=== PATIENT | female | born 1930 | race Caucasian/White ===

== ENCOUNTER 2018-04-28 16:23 | Inpatient (IN) | payer MEDICARE, BC ==
[~2018-04-28] VITALS: Ht 162.6 cm; Wt 56.4 kg
[2018-04-28] MEDS ORDERED: ASPIRIN 81 MG TABLET CHEW PO ONE (17:00)
[2018-04-28 17:28] LABS: ALBUMIN 2.8 g/dL (3.4-5.0); ANION GAP 9 mmol/L (5-15); CALCIUM 8.1 mg/dL (8.5-10.1); CHLORIDE 109 mmol/L (98-107); CREATININE 0.66 mg/dL (0.55-1.02)
[2018-04-28] MEDS ORDERED: PLEASE ENTER HEIGHT AND WEIGHT MC SCH (17:30)
[2018-04-28 17:37] LABS: TROPONIN I 0.178 ng/mL (0.000-0.045)
[2018-04-28 17:42] LABS: <PLATELET ESTIMATE> ADEQUATE; <RBC MORPHOLOGY> NORMAL; BASOPHILS # (AUTO) 0.02 x10^3/uL (0-0.1); BASOPHILS % (AUTO) 0 % (0-1); EOSINOPHILS % (AUTO) 0 % (1-7); LARGE PLATELETS 1+; LYMPHOCYTES # (AUTO) 0.45 x10^3/uL (1-3.4); LYMPHOCYTES % (AUTO) 4 % (22-44); MD MORPH REVIEW ONLY; MEAN CORPUSCULAR HEMOGLOBIN 27.3 pg (27.0-34.8); MEAN CORPUSCULAR HGB CONC 32.6 g/dL (32.4-35.8); MEAN CORPUSCULAR VOLUME 83.8 fL (80-100); MEAN PLATELET VOLUME 12.3 fL (7.4-10.4); MONOCYTES # (AUTO) 0.22 x10^3/uL (0.2-0.8); MONOCYTES % (AUTO) 2 % (2-9); NEUTROPHILS # (AUTO) 12.18 x10^3/uL (1.8-6.8); NEUTROPHILS % (AUTO) 95 % (42-75); PLATELET COUNT 187 x10^3/uL (130-400); RED BLOOD COUNT 5.18 x10^6/uL (3.82-5.3); RED CELL DISTRIBUTION WIDTH 15.6 % (9.6-15.2)
[2018-04-28] MEDS ORDERED: ASPIRIN 81 MG TABLET CHEW ONE (17:45)
[2018-04-28] MEDS ORDERED: ROSU5TAB PO (17:52)
[2018-04-28] MEDS ORDERED: PREG25CA PO (17:53)
[2018-04-28] MEDS ORDERED: AMIO100T4 PO (17:53)
[2018-04-28] MEDS ORDERED: FENTANYL (17:54)
[2018-04-28] MEDS ORDERED: DULO20CA45 PO (17:55)
[2018-04-28] MEDS ORDERED: OMNIPAQUE 350 MG/ML, 100ML BOTTLE ONE (18:19)
[2018-04-28] MEDS ORDERED: FENT1PAT77 TD (18:52)
[2018-04-28] MEDS ORDERED: HEPARIN 25,000 UNITS/500ML PMX 500 ML IV PRN (19:00)
[2018-04-28] MEDS ORDERED: HEPARIN 5,000 UNITS/ML, 1ML IV ONE (19:00)
[2018-04-28] MEDS ORDERED: HEPARIN 5,000 UNITS/ML, 1ML IV PRN (19:00)
[2018-04-28] MEDS ORDERED: HEPARIN 25,000 UNITS/500ML PMX 500 ML ONE (19:09)
[2018-04-28] MEDS ORDERED: HEPARIN 5,000 UNITS/ML, 1ML ONE (19:09)
[2018-04-28] MEDS ORDERED: SODIUM CHLORIDE 0.9% 1,000 ML IV SCH (19:40)
[2018-04-28] MEDS ORDERED: ONDANSETRON ODT 4 MG PO PRN (20:00)
[2018-04-28] MEDS ORDERED: LABETALOL 5MG/ML, 20ML IVPush PRN (20:00)
[2018-04-28] MEDS ORDERED: ACETAMINOPHEN 325 MG TABLET PO PRN (20:00)
[2018-04-28] MEDS ORDERED: BISACODYL 10 MG SUPP PR PRN (20:00)
[2018-04-28] MEDS ORDERED: ONDANSETRON 2MG/ML, 2ML IVPush PRN (20:00)
[2018-04-28] MEDS ORDERED: POLYETHYLENE GLYCOL 17 GM PACKET PO PRN (20:00)
[2018-04-28] MEDS ORDERED: DOCUSATE 100 MG CAPSULE PO PRN (20:00)
[2018-04-28] MEDS ORDERED: PROMETHAZINE 25 MG/ML, 1ML IM PRN (20:00)
[2018-04-28] MEDS ORDERED: POTASSIUM CHLORIDE 20 MEQ TAB.ER.PRT PO ONE (20:00)
[2018-04-28 20:19] LABS: HEMOGLOBIN A1C 5.7 % (4.2-6.3)
[2018-04-28 20:20] LABS: FREE T4 (FREE THYROXINE) 1.68 ng/dL (0.76-1.46); THYROID STIMULATING HORMONE 0.935 mIU/L (0.358-3.740)
[2018-04-28] MEDS: ATORVASTATIN 20 MG TABLET PO SCH (21:56)
[2018-04-28 23:04] LABS: CULTURE INDICATED? YES; MICROSCOPIC INDICATED
[2018-04-28 23:25] LABS: TROPONIN I 0.133 ng/mL (0.000-0.045)
[2018-04-28 23:49] VITALS: BP 152/95
[2018-04-29 00:42] VITALS: BP 153/89
[2018-04-29 05:19] LABS: CHLORIDE 112 mmol/L (98-107)
[2018-04-29 05:30] LABS: ALANINE AMINOTRANSFERASE 19 U/L (12-78); ALBUMIN 2.3 g/dL (3.4-5.0); ALKALINE PHOSPHATASE 68 U/L (45-117); ANION GAP 9 mmol/L (5-15); BILIRUBIN,TOTAL 0.4 mg/dL (0.2-1.0); CALCIUM 7.6 mg/dL (8.5-10.1); CHOLESTEROL, TOTAL 102 mg/dL (140-239); CREATININE 0.61 mg/dL (0.55-1.02); HDL CHOL % 49 % (28-40); HDL CHOLESTEROL (DIRECT) 50 mg/dL (40-60); LDL CHOLESTEROL,CALCULATED 34 mg/dL (54-169); TOTAL PROTEIN 5.3 g/dL (6.4-8.2); TRIGLYCERIDES 91 mg/dL (50-200); VLDL CHOLESTEROL 18 mg/dL (0-25)
[2018-04-29 05:31] LABS: LDL/HDL RATIO 0.7 (0.5-3.0); TROPONIN I 0.087 ng/mL (0.000-0.045)
[2018-04-29 05:58] LABS: MEAN CORPUSCULAR HEMOGLOBIN 27.4 pg (27.0-34.8); MEAN CORPUSCULAR HGB CONC 32.4 g/dL (32.4-35.8); MEAN CORPUSCULAR VOLUME 84.4 fL (80-100); MEAN PLATELET VOLUME 12.7 fL (7.4-10.4); PLATELET COUNT 159 x10^3/uL (130-400); RED BLOOD COUNT 4.66 x10^6/uL (3.82-5.3); RED CELL DISTRIBUTION WIDTH 15.8 % (9.6-15.2)
[2018-04-29 06:26] LABS: BASOPHILS # (AUTO) 0.02 x10^3/uL (0-0.1); BASOPHILS % (AUTO) 0 % (0-1); EOSINOPHILS % (AUTO) 0 % (1-7); LYMPHOCYTES # (AUTO) 1.72 x10^3/uL (1-3.4); LYMPHOCYTES % (AUTO) 18 % (22-44); MD SCAN; MONOCYTES # (AUTO) 0.75 x10^3/uL (0.2-0.8); MONOCYTES % (AUTO) 8 % (2-9); NEUTROPHILS # (AUTO) 7.34 x10^3/uL (1.8-6.8); NEUTROPHILS % (AUTO) 75 % (42-75)
[2018-04-29 06:35] VITALS: BP 158/88
[2018-04-29] MEDS: AMIODARONE 200 MG TABLET PO SCH (08:23)
[2018-04-29] MEDS: PREGABALIN 25 MG CAPSULE PO SCH (08:23)
[2018-04-29] MEDS ORDERED: AMIODARONE HCL PO SCH (09:00)
[2018-04-29 12:10] VITALS: BP 153/78
[2018-04-29] MEDS: ENOXAPARIN 60 MG/0.6 ML SQ SCH (13:54)
[2018-04-29 13:55] LABS: INTERNATIONAL NORMALIZED RATIO 1.04 (0.93-1.1); PROTHROMBIN TIME 10.8 Seconds (9.6-11.5)
[2018-04-29] MEDS ORDERED: SODIUM CHLORIDE 0.9% 1,000 ML IV SCH (14:30)
[2018-04-29] MEDS ORDERED: WARFARIN 5 MG TABLET PO-COUM ONE (18:00)
[2018-04-29 19:13] LABS: CLOSTRIDIUM DIFFICILE ANTIGEN NEGATIVE; CLOSTRIDIUM DIFFICILE TOXIN NEGATIVE (Negative)
[2018-04-29 20:00] VITALS: BP 144/84
[2018-04-29] MEDS: ATORVASTATIN 20 MG TABLET PO SCH (20:14)
[2018-04-30 00:52] VITALS: BP 164/90
[2018-04-30] MEDS: ENOXAPARIN 60 MG/0.6 ML SQ SCH ×2 (02:25→14:37)
[2018-04-30 04:49] LABS: INTERNATIONAL NORMALIZED RATIO 1.08 (0.93-1.1); PROTHROMBIN TIME 11.2 Seconds (9.6-11.5)
[2018-04-30 06:50] VITALS: BP 126/84
[2018-04-30] MEDS: AMIODARONE 200 MG TABLET PO SCH (08:53)
[2018-04-30] MEDS: PREGABALIN 25 MG CAPSULE PO SCH (08:53)
[2018-04-30] MEDS ORDERED: FENTANYL 50 MCG PATCH TD SCH (09:00)
[2018-04-30 13:05] VITALS: BP 138/85
[2018-04-30] MEDS ORDERED: ENOX60SY4 SQ (15:27)
[2018-04-30] MEDS ORDERED: WARF5TAB PO-COUM (15:27)
[2018-04-30] MEDS ORDERED: WARF-36 PO (17:22)
[2018-04-30] MEDS ORDERED: WARFARIN 5 MG TABLET PO-COUM ONE (18:00)
== END 2018-04-30 18:23 | disposition home health service (06) | DRG 280 ==
LOC: ED 18:47 → EDIP 18:48 → 5SO 19:55
PROVIDERS: ADMIT Internal Medicine; ATTEND Internal Medicine
DX: I21.4 Non-ST elevation (NSTEMI) myocardial infarction (principal); I26.09 Other pulmonary embolism with acute cor pulmonale; E43 Unspecified severe protein-calorie malnutrition; D72.829 Elevated white blood cell count, unspecified; E87.6 Hypokalemia; I48.2 Chronic atrial fibrillation; E78.5 Hyperlipidemia, unspecified; Z68.21 Body mass index [BMI] 21.0-21.9, adult; G89.29 Other chronic pain; I07.1 Rheumatic tricuspid insufficiency; R09.02 Hypoxemia; N28.1 Cyst of kidney, acquired; K83.8 Other specified diseases of biliary tract; G70.00 Myasthenia gravis without (acute) exacerbation; S80.921A Unspecified superficial injury of right lower leg, initial encounter; X58.XXXA Exposure to other specified factors, initial encounter; Y93.89 Activity, other specified; Z79.82 Long term (current) use of aspirin; Z79.01 Long term (current) use of anticoagulants; Z86.718 Personal history of other venous thrombosis and embolism; Z86.711 Personal history of pulmonary embolism; Z90.49 Acquired absence of other specified parts of digestive tract; Z90.710 Acquired absence of both cervix and uterus; Y92.89 Other specified places as the place of occurrence of the external cause; Y99.8 Other external cause status; Z88.5 Allergy status to narcotic agent
CPT/HCPCS: 36415; 71045; 71275; 74181; 80048; 80053; 80061; 81001; 82040; 83036; 83735; 83880; 84439; 84443; 84484; 85025; 85379; 85520; 85610; 87086; 87324; 93005; 93306; 99291; J1644; J1650; Q9967; J7030

== ENCOUNTER 2018-05-01 11:39 | Inpatient (IN) | payer MEDICARE, BC ==
[~2018-05-01] VITALS: Ht 162.6 cm; Wt 52.5 kg
[~2018-05-01 11:39] MED LIST: AMIO100T4 PO; DULO20CA45 PO; ENOX60SY4 SQ; FENT1PAT77 TD; FENTANYL; PREG25CA PO; ROSU5TAB PO; WARF-36 PO; WARF5TAB PO-COUM
[2018-05-01 12:46] LABS: INTERNATIONAL NORMALIZED RATIO 1.96 (0.93-1.1); PROTHROMBIN TIME 20.1 Seconds (9.6-11.5)
[2018-05-01] MEDS ORDERED: SODIUM CHLORIDE FLUSH 10ML SYR IVF PRN (15:00)
[2018-05-01] MEDS ORDERED: BISACODYL 10 MG SUPP PR PRN (16:00)
[2018-05-01] MEDS ORDERED: ACETAMINOPHEN 325 MG TABLET PO PRN (16:00)
[2018-05-01] MEDS ORDERED: DOCUSATE 100 MG CAPSULE PO PRN (16:00)
[2018-05-01] MEDS ORDERED: ONDANSETRON ODT 4 MG PO PRN (16:00)
[2018-05-01] MEDS ORDERED: POLYETHYLENE GLYCOL 17 GM PACKET PO PRN (16:00)
[2018-05-01] MEDS ORDERED: ENALAPRILAT 1.25 MG/ML, 2ML IVPush PRN (16:00)
[2018-05-01] MEDS ORDERED: hydrALAzine 20 MG/ML, 1ML IVPush PRN (16:00)
[2018-05-01] MEDS ORDERED: ONDANSETRON 2MG/ML, 2ML IVPush PRN (16:00)
[2018-05-01 16:30] VITALS: BP 116/68
[2018-05-01] MEDS ORDERED: WARFARIN 5 MG TABLET PO-COUM ONE (18:00)
[2018-05-01 19:17] VITALS: BP 126/75
[2018-05-01] MEDS: ENOXAPARIN 60 MG/0.6 ML SQ SCH (19:43)
[2018-05-01] MEDS: ATORVASTATIN 20 MG TABLET PO SCH (19:43)
[2018-05-02 01:20] VITALS: BP 142/82
[2018-05-02 05:14] LABS: INTERNATIONAL NORMALIZED RATIO 2.99 (0.93-1.1); PROTHROMBIN TIME 30.4 Seconds (9.6-11.5)
[2018-05-02 06:53] VITALS: BP 139/78
[2018-05-02] MEDS: PREGABALIN 25 MG CAPSULE PO SCH (08:27)
[2018-05-02] MEDS: ENOXAPARIN 60 MG/0.6 ML SQ SCH ×2 (08:27→20:19)
[2018-05-02] MEDS: AMIODARONE 200 MG TABLET PO SCH (08:28)
[2018-05-02] MEDS ORDERED: AMIODARONE HCL PO SCH (09:00)
[2018-05-02] MEDS ORDERED: TEMPLATE NON-FORMULARY MED. (Rosuvastatin Calcium** (Crestor**) 10 MG) PO SCH (09:00)
[2018-05-02 13:34] VITALS: BP 109/67
[2018-05-02] MEDS ORDERED: WARFARIN 2 MG TABLET PO-COUM ONE (18:00)
[2018-05-02] MEDS: ATORVASTATIN 20 MG TABLET PO SCH (20:19)
[2018-05-02 20:41] VITALS: BP 121/72
[2018-05-03 02:28] VITALS: BP 134/82
[2018-05-03 05:51] LABS: CREATININE 0.68 mg/dL (0.55-1.02)
[2018-05-03 06:01] LABS: INTERNATIONAL NORMALIZED RATIO 5.16 (0.93-1.1)
[2018-05-03 07:28] VITALS: BP 136/74
[2018-05-03] MEDS: PREGABALIN 25 MG CAPSULE PO SCH (09:49)
[2018-05-03] MEDS: AMIODARONE 200 MG TABLET PO SCH (09:49)
[2018-05-03 14:30] VITALS: BP 122/71
[2018-05-03] MEDS ORDERED: AMIO200T42 PO (15:39)
[2018-05-03] MEDS ORDERED: APIX5TAB PO (15:39)
[2018-05-04] MEDS ORDERED: FENTANYL 50 MCG PATCH TD SCH (09:00)
== END 2018-05-03 17:58 | DRG 175 ==
LOC: ED 14:34 → EDIP 14:59 → 3NE 15:57
PROVIDERS: ADMIT Family Medicine; ATTEND Family Medicine
DX: I26.99 Other pulmonary embolism without acute cor pulmonale (principal); J96.91 Respiratory failure, unspecified with hypoxia; I48.2 Chronic atrial fibrillation; G70.00 Myasthenia gravis without (acute) exacerbation; R29.6 Repeated falls; E78.5 Hyperlipidemia, unspecified; G89.29 Other chronic pain; I25.2 Old myocardial infarction; Z86.711 Personal history of pulmonary embolism; Z87.891 Personal history of nicotine dependence; Z90.710 Acquired absence of both cervix and uterus; Z91.81 History of falling; Z99.3 Dependence on wheelchair; Z88.5 Allergy status to narcotic agent; Z88.6 Allergy status to analgesic agent; Z86.718 Personal history of other venous thrombosis and embolism
CPT/HCPCS: 36415; 82565; 85610; 85730; 99285; J1650

== ENCOUNTER 2018-06-22 17:02 | Emergency (ER) | payer MEDICARE, BC ==
[~2018-06-22] VITALS: Ht 162.6 cm; Wt 52.0 kg
[~2018-06-22 17:02] MED LIST changes: +AMIO200T42 PO; +APIX5TAB PO
[2018-06-22 18:41] LABS: ANION GAP 9 mmol/L (5-15); CALCIUM 8.2 mg/dL (8.5-10.1); CHLORIDE 109 mmol/L (98-107); CREATININE 0.62 mg/dL (0.55-1.02)
[2018-06-22 18:51] LABS: MEAN CORPUSCULAR HGB CONC 32.3 g/dL (32.4-35.8); MEAN CORPUSCULAR VOLUME 80.7 fL (80-100); RED BLOOD COUNT 4.89 x10^6/uL (3.82-5.3); RED CELL DISTRIBUTION WIDTH 17.2 % (9.6-15.2)
[2018-06-22 19:18] LABS: MD SCAN
[2018-06-22 19:19] LABS: PLATELET COUNT 134 x10^3/uL (130-400)
[2018-06-22 19:20] LABS: BASOPHILS # (AUTO) 0.03 x10^3/uL (0-0.1); BASOPHILS % (AUTO) 0 % (0-1); EOSINOPHILS # (AUTO) 0.01 x10^3/uL (0-0.4); EOSINOPHILS % (AUTO) 0 % (1-7); LYMPHOCYTES # (AUTO) 1.35 x10^3/uL (1-3.4); LYMPHOCYTES % (AUTO) 17 % (22-44); MONOCYTES # (AUTO) 0.52 x10^3/uL (0.2-0.8); MONOCYTES % (AUTO) 6 % (2-9); NEUTROPHILS # (AUTO) 6.14 x10^3/uL (1.8-6.8); NEUTROPHILS % (AUTO) 76 % (42-75)
[2018-06-22 20:23] VITALS: BP 133/91
== END 2018-06-22 22:26 | disposition home or self-care (01) ==
LOC: ED 20:20
DX: N93.9 Abnormal uterine and vaginal bleeding, unspecified (principal); Z90.710 Acquired absence of both cervix and uterus; I48.91 Unspecified atrial fibrillation
CPT/HCPCS: 36415; 80048; 85025; 99284

== ENCOUNTER 2018-07-02 18:08 | Emergency (ER) | payer MEDICARE, BC ==
[~2018-07-02] VITALS: Ht 162.6 cm; Wt 55.0 kg
[2018-07-02] MEDS ORDERED: ACETAMINOPHEN 325 MG TABLET PO ONE (19:30)
[2018-07-02] MEDS ORDERED: ACETAMINOPHEN 325 MG TABLET ONE (20:13)
[2018-07-02 20:58] VITALS: BP 124/86
== END 2018-07-02 21:28 | disposition home or self-care (01) ==
LOC: ED 19:11
DX: S51.012A Laceration without foreign body of left elbow, initial encounter (principal); S00.03XA Contusion of scalp, initial encounter; I48.91 Unspecified atrial fibrillation; G70.00 Myasthenia gravis without (acute) exacerbation; Z86.711 Personal history of pulmonary embolism; Z90.710 Acquired absence of both cervix and uterus; Z87.891 Personal history of nicotine dependence; W01.198A Fall on same level from slipping, tripping and stumbling with subsequent striking against other object, initial encounter; Y93.89 Activity, other specified; Y92.098 Other place in other non-institutional residence as the place of occurrence of the external cause; Y99.8 Other external cause status
CPT/HCPCS: 70450; 72125; 99284